=== PATIENT | male | born 1995 | race Caucasian/White ===

== ENCOUNTER 2017-05-27 15:48 | Emergency (ER) | payer BC ==
[~2017-05-27] VITALS: Ht 180.3 cm; Wt 81.5 kg
[~2017-05-27 15:48] MED LIST: LAMO25TA PO
[2017-05-27 15:49] VITALS: Ht 180.3 cm; Wt 81.5 kg
[2017-05-27] MEDS ORDERED: PROPOFOL 200 MG INJ IV STA (16:00)
[2017-05-27] MEDS ORDERED: SOD CHLORIDE 0.9% 1,000 ML IV STA (16:00)
[2017-05-27] MEDS ORDERED: morphine 4 MG/ML VIAL IV STA (16:00)
[2017-05-27] MEDS ORDERED: ONDANSETRON 4 MG INJ IV STA (16:00)
[2017-05-27] MEDS ORDERED: KETOROLAC 30 MG INJ IV STA (16:00)
--- NOTE | 2017-05-27 16:34 | RADRPT ---
PROCEDURE: XR Right Shoulder. CLINICAL INDICATION: Right shoulder pain. Dislocation. TECHNIQUE: Three views. Frontal internal rotation, frontal external rotation, and oblique. COMPARISON: No prior study is available for comparison. FINDINGS: There is an anterior dislocation of the right glenohumeral joint. There is no fracture visualized. The soft tissues are normal. Articular surfaces are intact. There is no lytic or blastic lesion. There is no radiopaque foreign body. IMPRESSION: 1. Anterior dislocation of the right glenohumeral joint. 2. Otherwise unremarkable images of the right shoulder. RPTAT: QQ .Chapo Jaffe MD, Date Time Electronically viewed and signed by .Chapo Jaffe MD, on 05/27/2017 16:34 .R/
--- NOTE | 2017-05-27 18:10 | RADRPT ---
PROCEDURE: XR right shoulder. CLINICAL INDICATION: Pain , status post reduction TECHNIQUE: Axillary , AP views of the right shoulder were performed. COMPARISON: Same day FINDINGS: There is normal osseous mineralization and alignment. No acute fracture or osseous lesion is identified. There are normal joints without evidence of arthritis or dislocation. The soft tissues are unremarkable. RPTAT: AA IMPRESSION: Unremarkable right shoulder. Status post reduction of the right shoulder dislocation. .Tk Anderson MD, MD Date Time Electronically viewed and signed by .Tk Anderson MD, on 05/27/2017 18:10 .S/
[2017-05-27] MEDS ORDERED: HYDR-906 PO (18:12)
--- NOTE | 2017-05-27 18:34 | ERD ---
ER Documentation Chief Complaint Date/Time DATE: 05/27/17 TIME: 18:13 Chief Complaint right arm dislocation, hx HPI This is a 22-year-old male with a known history of seizure disorder, currently on Depakote, who presented to the emergency department after he had a witnessed tonic-clonic seizure just prior to arrival. His girlfriend witnessed the seizure. He was sitting on his bed when this occurred. When he awoke from his post ictal state he was complaining of right shoulder pain. He was unable to move the right arm secondary to pain. He denied any numbness or tingling of his right upper extremity and he is right-handed dominant. Indicates he has dislocated his shoulder roughly 10 times in the past which usually occurs during seizure activity. He denies a headache. Indicates he has been compliant with his antiepileptic medication. His last seizure was 1 month prior to arrival. His tongue or lose urinary incontinence during the seizure activity. ROS All systems reviewed and are negative except as per history of present illness. Medications Home Meds Active Scripts Hydrocodone/Acetaminophen ([place] 5-325 Tablet) 1 Each Tablet, 1 EACH PO Q6 Y for PAIN LEVEL 6-10, #20 TAB Prov:FRANCISCO OVALLE 05/27/17 Reported Medications Lamotrigine* (Lamotrigine*) 25 Mg Tablet, 25 MG PO BID, TAB 06/10/16 Allergies Allergies: Coded Allergies: No Known Drug Allergy (Verified Allergy, Mild, 06/10/16) PMhx/Soc History of Surgery: No Anesthesia Reaction: No Hx Neurological Disorder: Yes (SEIZURES) Hx Respiratory Disorders: Yes (HISTORY OF ASTHMA) Hx Cardiac Disorders: No Hx Psychiatric Problems: No Hx Miscellaneous Medical Probl: No Hx Alcohol Use: Yes (special occasions) Hx Substance Use: Yes ([facility]) Hx Tobacco Use: Yes Smoking Status: Current every day smoker Physical Exam Vitals Vital Signs Date Time Temp Pulse Resp B/P Pulse Ox O2 Delivery O2 Flow Rate FiO2 05/27/17 15:49 98.3 121 18 129/75 96 Physical Exam Constitutional:Well-developed. Well-nourished. HEENT:Normocephalic. Atraumatic.Pupils were equal round reactive to light. Moist mucous membranes.No tonsillar exudates. Nasal septal hematoma. No hemotympanum. Neck: No nuchal rigidity. No lymphadenopathy. No posterior cervical spine tenderness or step-offs. Respiratory: Not using accessory muscles of respiration.Lungs were clear to auscultation bilaterally. No rhonchi. No rales. No wheezing. Cardiovascular: Regular rate regular rhythm.No murmurs. No rubs were appreciated.S1, S2 normal. Distal pulses are palpable 2+ bilaterally. GI: Abdomen was soft. Nontender. Non Distended. No pulsatile abdominal masses or bruits. No rebound. No guarding. Bowel sounds were present and normal. Muscle skeletal: Abnormal lie to the right humeral head. Patient held the right upper extremity and abduction and flexed at the right elbow. Flexion extension of the right elbow was grossly normal. Patient was unable to AB duct the right upper extremity due to pain. Flexion extension ulnar and radial deviation of the right wrist appears grossly normal. Skin: No petechia, no purpura. No lesions on the palms or the soles of the feet. No maculopapular rash. NEURO: Patient was alert, awake, orientated x3.No facial droop. Gait observed and normal with no ataxia.Speech had regular rate and rhythm. No focal neurological deficits. Results 24 hrs Current Medications Medications (Trade) Dose Ordered Sig/Kris Route PRN Reason Start Time Stop Time Status Last Admin Dose Admin Propofol 200 mg 200 mg ONCE STAT IV 05/27/17 16:00 05/27/17 16:03 DC 05/27/17 16:34 Sodium Chloride (NS) 1,000 ml @ 1,000 mls/hr Q1H STAT IV 05/27/17 16:00 05/27/17 16:59 DC 05/27/17 16:34 Morphine Sulfate (morphine) 4 mg ONCE STAT IV 05/27/17 16:00 05/27/17 16:03 DC 05/27/17 16:33 Ondansetron HCl (Zofran Inj) 4 mg ONCE STAT IV 05/27/17 16:00 05/27/17 16:03 DC 05/27/17 16:33 Ketorolac Tromethamine (Toradol) 30 mg ONCE STAT IV 05/27/17 16:00 05/27/17 16:03 DC 05/27/17 16:33 Procedures/MDM This is a pleasant 22-year-old male that presented to the emergency department with physical exam findings suggestive of an anterior shoulder dislocation. Renographic imaging did confirm this reviewed by both myself and the radiologist 2 views. At this time the patient consented to a reduction under conscious sedation. He was placed on a laboratory monitor continuous pulse oximetry and IV access was established. Analgesic control was improved with IV Toradol and morphine. Procedural Sedation: Pre-assessment performed. See preceding complete history and physical for details. Time out performed. See sedation documentation for details. Medication(s): 150 mg of propofol Complications: No hypoxic or apneic events Recovered without incident. Greater than 15 minutes of face to face time included in sedation and recovery. Post radiographic imaging reviewed by myself and the radiologist indicated that there was successful reduction of the left shoulder utilizing traction countertraction method. The patient was placed in a shoulder immobilizer. Afterwards the patient is reviewed by myself and was neurovascularly intact. There is no evidence of compartment syndrome or necrotizing fasciitis. Patient was discharged home with a prescription of [place] for analgesia control. The patient was discharged home in fair condition. They were instructed to return to the emergency department at any time if there was any worsening of their condition. The patient stated they would follow up with their PCP in the next 24-48 hours to initiate a suitable medication regimen under the care of their PCP as well as to allow their PCP to monitor any drug reactions. The patient was discharged home with prescriptions after they gave informed consent to the new medication. They were also fully informed by myself on the adverse effects and adverse drug interactions in order to provide adequate safeguards to prevent possible adverse reactions to medications. Departure Diagnosis: Primary Impression: Dislocation, shoulder, anterior Encounter type: initial encounter Laterality: right Qualified Code: S43.014A - Anterior dislocation of right shoulder, initial encounter Condition: Fair Patient Instructions: Dislocation, Other Joint FRANCISCO OVALLE May 27, 2017 18:34
== END 2017-05-27 18:22 | disposition home or self-care (01) ==
LOC: E/R 15:48
DX: S43.014A Anterior dislocation of right humerus, initial encounter (principal); J45.909 Unspecified asthma, uncomplicated; F17.210 Nicotine dependence, cigarettes, uncomplicated; X58.XXXA Exposure to other specified factors, initial encounter; Y92.9 Unspecified place or not applicable
CPT/HCPCS: 23650; 73030; J1885; J2270; J2405; J7030; 96374; 96375

== ENCOUNTER 2017-06-09 13:46 | Emergency (ER) | END 2017-06-09 18:25 | disposition home or self-care (01) | DX: S43.004A Unspecified dislocation of right shoulder joint, initial encounter (principal); R56.9 Unspecified convulsions; S09.90XA Unspecified injury of head, initial encounter; R51 Headache; J45.909 Unspecified asthma, uncomplicated; F17.210 Nicotine dependence, cigarettes, uncomplicated; W18.39XA Other fall on same level, initial encounter; Y92.9 Unspecified place or not applicable | CPT/HCPCS: 70450; 73030; 80164; 96374; 96375; 99285; J1170; J1953; J2405 ==